=== PATIENT | female | born 1965 | race Caucasian/White ===

== ENCOUNTER 2016-09-17 18:16 | Emergency (ER) | payer MEDICARE ==
[2016-09-17] MEDS ORDERED: 0.9 % SODIUM CHLORIDE 1,000 ML BAG IV ONE (18:50)
--- NOTE | 2016-09-17 19:01 | Emergency Department Record ---
History of Present Illness - General Chief Complaint: Back Pain/Injury Stated Complaint: BACK PAIN/NUMBNESS IN LEGS Time Seen by Provider: 09/17/16 18:40 Source: Patient Mode of Arrival: Ambulatory Limitations: No limitations - History of Present Illness Initial Comments: The patient is here due to multiple complaints. She has a long hx of chronic lower back pain which is no different today. She denies any leg weakness but is having mild numbness and tingling to her back and buttocks for about 2 weeks. There has been no incontinence, fever, chills, nausea, vomiting, or diarrhea. The reason she came in today is she feels weak and cold and wants to keep a blanket on. She had the same symptoms 33 years ago when she had a pelvic infection. She denies any AP, vaginal issues or dysuria. The patient has had a RUBA in the past. Again she states the chronic back pain is the same now as she has felt for the last 16 years. MD Complaint: Back pain Onset/Timin -: Days(s) Place: Home Radiation: Left leg, Right leg Severity scale (1-10): 8 Quality: Tingling Improves With: None Worsens With: Movement, Walking Context: Unknown Associated Symptoms: Difficulty walking, Fever/chills Treatments Prior to Arrival: NSAIDS, Prescription analgesics - Related Data Home Medications Medication Instructions Recorded Confirmed Last Taken Amlodipine Besylate [Norvasc] 10 mg PO DAILY 09/17/16 09/17/16 09/17/16 Citalopram Hydrobromide [Celexa] 40 mg PO DAILY 09/17/16 09/17/16 09/17/16 Diazepam [Valium] 10 mg PO ASDIR 09/17/16 09/17/16 09/16/16 Gabapentin [Neurontin] 100 mg PO TID 09/17/16 09/17/16 09/17/16 Lamotrigine [Lamictal] 100 mg PO BID 09/17/16 09/17/16 09/17/16 Lurasidone HCl [Latuda] 40 mg PO DAILY 09/17/16 09/17/16 09/17/16 Meloxicam [Mobic] 15 mg PO DAILY 09/17/16 09/17/16 09/17/16 Trazodone HCl [Desyrel] 50 mg PO QHS 09/17/16 09/17/16 09/16/16 Previous Rx's Medication Instructions Recorded Cyclobenzaprine HCl [Flexeril] 10 mg PO TID PRN #20 tablet 09/17/16 Allergies Allergy/AdvReac Type Severity Reaction Status Date / Time nitroglycerin AdvReac HYPERSENSIT Verified 09/17/16 18:35 [facility] Travel Screening - Travel/Exposure Within Last 30 Days Have you traveled within the last 30 days?: No - Travel/Exposure Within Last Year Have you traveled outside the [place] in the last year?: No - Additonal Travel Details Have you been exposed to anyone with a communicable illness?: No - Travel Symptoms Symptom Screening: None Review of Systems Constitutional: Denies: Chills, Fever Eyes: Denies: Eye discharge ENT: Denies: Congestion Respiratory: Denies: Cough, Dyspnea Cardiovascular: Denies: Arrhythmia, Chest pain Past Medical History - SOCIAL HISTORY Smoking Status: Current every day smoker Alcohol Use: None Drug Use: Occassional Drug Use Detail:: Marijuana - RESPIRATORY Hx Respiratory Disorders: No - CARDIOVASCULAR Hx Cardio Disorders: Yes Hx Hypertension: Yes - NEURO Hx Neuro Disorders: Yes Hx Neuropathy: Yes - GI Hx GI Disorders: No - Hx Genitourinary Disorders: Yes Hx UTI: Yes - ENDOCRINE Hx Endocrine Disorders: No - MUSCULOSKELETAL Hx Musculoskeletal Disorders: No - PSYCH Hx Psych Problems: Yes Hx Anxiety: Yes Hx Depression: Yes - HEMATOLOGY/ONCOLOGY Hx Hematology/Oncology Disorders: No Family Medical History Any Significant Family History?: No Physical Exam - General General Appearance: Alert, Oriented x3, Cooperative, No acute distress - Head Head exam: Atraumatic, Normocephalic, Normal inspection - Eye Eye exam: Normal appearance, PERRL - ENT Throat exam: Normal inspection. negative: Tonsillar erythema, Tonsillar exudate - Neck Neck exam: Normal inspection, Full ROM. negative: Tenderness - Respiratory Respiratory exam: Normal lung sounds bilaterally. negative: Respiratory distress - Cardiovascular Cardiovascular Exam: Regular rate, Normal rhythm, Normal heart sounds - GI/Abdominal GI/Abdominal exam: Soft, Normal bowel sounds. negative: Guarding, Rebound, Rigid, Tenderness (The abdomen is completely nontender in all 4 quads.) - Extremities Extremities exam: Normal inspection, Full ROM, Normal capillary refill, Other ( Neg SLR bilaterally.). negative: Pedal edema, Tenderness - Back Back exam: Reports: Normal inspection, Full ROM. Denies: Muscle spasm, Paraspinal tenderness, Rash noted, Tenderness, Vertebral tenderness - Neurological Neurological exam: Alert, Normal gait, Oriented X3, Reflexes normal (The patellar and achilles reflexes are 2+ and equal bilaterally.). negative: Abnormal gait, Altered, Motor sensory deficit (Motor and Sensory are 5/5 and equal to the bilateral lower extremities.) - Skin Skin exam: negative: Rash Course Vital Signs 09/17/16 18:19 Temperature 98.1 F Pulse Rate 95 H Respiratory 20 Rate Blood Pressure 119/80 Pulse Ox 97 - Reevaluation(s) Reevaluation #1: 09/17/16 20:00 The patient is doing a lot better at this time. She denies any back pain, weakness or numbness. She is up ambulating normally. We are waiting on her Xray reports. Reevaluation #2: The patient is feeling much better at this time. She denies any back pain presently and has no numbness or tingling of her legs. Her gait is normal and steady with no weakness. She states she feels better and does feel warm now with no AP, nausea, or vomiting. I did explain the lab tests to the patient and did recommend F/U with her PCP early next week. 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 Please take your home pain medicines as directed and may add Flexeril if needed. Please return to the ER for any increased pain, fever, vomiting, leg numbness or weakness or any bowel of bladder incontinence. Prescriptions: Cyclobenzaprine HCl [Flexeril] 10 mg PO TID PRN #20 tablet PRN Reason: Pain Forms: Patient Portal Access Time of Disposition: 20:43
[2016-09-17 19:17] LABS: URINE APPEARANCE CLEAR; URINE BILIRUBIN NEGATIVE (NEGATIVE); URINE BLOOD NEGATIVE (NEGATIVE); URINE COLOR YELLOW; URINE GLUCOSE (UA) NEGATIVE (NEGATIVE); URINE KETONE NEGATIVE (NEGATIVE); URINE LEUKOCYTE ESTERASE NEGATIVE (NEGATIVE); URINE NITRITE NEGATIVE (NEGATIVE)
[2016-09-17 19:24] LABS: URINE BACTERIA FEW; URINE RBC 0 - 2 (NONE SEEN); URINE WBC 0 - 2 (0-2/hpf)
[2016-09-17 19:24] LABS: ALBUMIN 3.7 gm/dL (3.5-5.0); ALKALINE PHOSPHATASE 138 U/L (38-126); ALT/SGPT 35 U/L (9-52); ANION GAP 10.2 (7-16); AST/SGOT 31 U/L (14-36); BILIRUBIN,TOTAL 0.55 mg/dL (0.2-1.3); BLOOD UREA NITROGEN 10 mg/dL (7-17); CARBON DIOXIDE 22.8 mmol/L (22-30); CREATININE 0.9 mg/dL (0.52-1.04); EST GLOMERULAR FILTRATION RATE > 60 ml/min; GLUCOSE,RANDOM 128 mg/dL (70-110)
[2016-09-17] MEDS ORDERED: POTASSIUM CHLORIDE 20 MEQ TABLET PO ONE (19:26)
[2016-09-17] MEDS ORDERED: KETOROLAC 30 MG/ML VIAL IVP ONE (19:26)
[2016-09-17] MEDS ORDERED: ORPHENADRINE CITRATE 60MG/2ML VIAL IM ONE (19:27)
[2016-09-17 19:33] LABS: HEMATOCRIT 39.4 % (35.0-47.0); HEMOGLOBIN 12.9 gm/dl (11.6-16.0); MEAN CELL VOLUME 89.1 fl (81-97); MEAN CORPUSCULAR HEMOGLOBIN 29.2 pg (27-33); MEAN CORPUSCULAR HGB CONC 32.7 g/dl (32-36); PLATELET COUNT 254 K/uL (130-400); RED BLOOD COUNT 4.42 M/uL (3.80-5.40); RED CELL DISTRIBUTION WIDTH 14.7 % (11.5-14.5)
[2016-09-17 19:34] LABS: MEAN PLATELET VOLUME 10.6 fl (7.4-10.4)
== END 2016-09-17 20:52 | disposition home or self-care (01) ==
LOC: ER 18:16
DX: G89.29 Other chronic pain (principal); M54.5 Low back pain; R26.2 Difficulty in walking, not elsewhere classified; R20.2 Paresthesia of skin; R53.1 Weakness
CPT/HCPCS: 99284 ×2; 96374; 96372; 85651; 80076; 86140; 80048; 81001; 85027; 72110; J1885; J2360; J7030